=== PATIENT | female | born 1960 | race Caucasian/White ===

== ENCOUNTER 2019-05-08 14:39 | Emergency (ER) | payer OTHER ==
[~2019-05-08] VITALS: Ht 170.2 cm; Wt 83.9 kg
[~2019-05-08 14:39] MED LIST: CELEXA40 MG; CLEOCIN HCL150 MG PO; HYDROCODON-ACE1 EAC7 PO; IBUPROFEN 800800 M1 PO; IBUPROFEN 800800 MG PO; NORCO 5-325 TA1 EACH PO; ZOFRAN4 MG PO
[2019-05-08] MEDS ORDERED: FLAGYL500 M1 PO (15:11)
[2019-05-08 15:28] VITALS: BP 163/84
== END 2019-05-08 15:39 | disposition home or self-care (01) ==
LOC: M.ERS 14:39
DX: K04.7 Periapical abscess without sinus (principal); F41.9 Anxiety disorder, unspecified; F32.9 Major depressive disorder, single episode, unspecified; F17.210 Nicotine dependence, cigarettes, uncomplicated; Z88.0 Allergy status to penicillin

== ENCOUNTER 2020-01-27 11:46 | Emergency (ER) | payer OTHER ==
[~2020-01-27] VITALS: Ht 172.7 cm; Wt 83.9 kg
[~2020-01-27 11:46] MED LIST changes: +FLAGYL500 M1 PO
[2020-01-27 11:54] VITALS: BP 187/98
[2020-01-27] MEDS ORDERED: KEFLEX500 M2 PO (12:12)
== END 2020-01-27 12:10 | disposition home or self-care (01) ==
LOC: M.ERS 11:46
DX: L03.811 Cellulitis of head [any part, except face] (principal); F32.9 Major depressive disorder, single episode, unspecified; F41.9 Anxiety disorder, unspecified; Z90.49 Acquired absence of other specified parts of digestive tract; Z88.0 Allergy status to penicillin

== ENCOUNTER 2021-07-29 09:13 | Emergency (ER) | payer OTHER ==
[~2021-07-29] VITALS: Ht 170.2 cm; Wt 86.2 kg
[~2021-07-29 09:13] MED LIST changes: +KEFLEX500 M2 PO
[2021-07-29] MEDS ORDERED: NEURONTIN100 MG PO (09:27)
[2021-07-29] MEDS ORDERED: FLEXERIL PO (09:34)
[2021-07-29] MEDS ORDERED: IBUPROFEN 800800 M1 PO (09:34)
[2021-07-29] MEDS ORDERED: HYDROCODON-ACE1 EAC7 PO (09:34)
[2021-07-29 09:51] VITALS: BP 154/76
== END 2021-07-29 09:51 | disposition home or self-care (01) ==
LOC: M.ERS 09:13
DX: M54.5 Low back pain (principal); F32.9 Major depressive disorder, single episode, unspecified; F41.9 Anxiety disorder, unspecified; Z90.49 Acquired absence of other specified parts of digestive tract; Z79.899 Other long term (current) drug therapy; Z88.0 Allergy status to penicillin